=== PATIENT | female | born 1970 | race African-American/Black ===

== ENCOUNTER → 2016-03-21 14:41 | Outpatient (CLI) | payer MEDICAID ==
[2015-05-26 07:48] VITALS: BMI 35.6
[~2016-03-21 14:41] MED LIST: ATIVAN1 MG PO; CARAFATE1 G PO; CARDIZEM60 MG PO; COUMADIN10 MG PO; FERROUS SULFAT325 MG PO; LISINOPRIL-HCTZ1 T13 PO; LOVENOX INJ100 MG/ML SC; NEXIUM40 MG PO; SAVELLA100 MG PO
== END | disposition home or self-care (01) ==
LOC: D.MRI 14:41
DX: M25.512 Pain in left shoulder (principal)

== ENCOUNTER 2016-05-03 17:13 | Emergency (ER) | payer MEDICAID ==
[2015-05-26 07:48] VITALS: BMI 35.6
[2016-05-03 18:42] LABS: HEMATOCRIT 40.8 % (36.0-48.0); HEMOGLOBIN 13.1 g/dL (12-16); MCH 28.7 pg (26.0-34.0); MCHC 32.1 g/dL (31.0-37.0); MCV 89.3 fL (80.0-100.0); MEAN PLATELET VOLUME 10.3 fL (7.4-10.4); PLATELET COUNT 273 10x3/uL (130-400); RBC 4.57 10x6/uL (4.00-5.40); RDW 13.8 % (11.5-14.5); WBC 4.4 10x3/uL (4.8-10.8)
[2016-05-03 18:50] LABS: APTT 21.5 SECONDS (22.8-39.4); PROTIME 13.1 SECONDS (11.6-15.0)
[2016-05-03 18:51] LABS: ANION GAP 11.6 mmol/L (8-16); CALCIUM 9.3 mg/dL (8.5-10.1); CARBON DIOXIDE 30.6 mmol/L (21.0-32.0); CREATININE - SERUM 0.9 mg/dL (0.6-1.3); D-DIMER-QUANTITATIVE < 0.27 ug/mLFEU (0.20-0.54); POTASSIUM - SERUM 3.2 mmol/L (3.5-5.1)
[2016-05-03 19:11] LABS: EOSINOPHILS 4 % (0-7); LYMPHOCYTES 62 % (15-50); MONOCYTES 3 % (2-11); NEUTROPHILS 31 % (40-80); PLATELET ESTIMATE NORMAL
== END 2016-05-03 20:58 | disposition home or self-care (01) ==
LOC: D.ER 17:13
PROVIDERS: Nurse Practitioner Acute Care
DX: M54.5 Low back pain (principal); E87.6 Hypokalemia

== ENCOUNTER 2016-05-22 20:11 | Emergency (ER) | payer MEDICAID ==
[2015-05-26 07:48] VITALS: BMI 35.6
== END 2016-05-22 21:00 | disposition home or self-care (01) ==
LOC: D.ER 20:11
DX: M54.2 Cervicalgia (principal)

== ENCOUNTER → 2016-08-03 10:25 | Outpatient (CLI) | payer MEDICAID ==
[2015-05-26 07:48] VITALS: BMI 35.6
== END | disposition home or self-care (01) ==
LOC: D.MRI 10:25
DX: S83.231A Complex tear of medial meniscus, current injury, right knee, initial encounter (principal)

== ENCOUNTER 2018-06-06 11:05 | Outpatient (CLI) | payer OTHER ==
[~2018-06-06] VITALS: Ht 167.6 cm; Wt 105.5 kg
--- NOTE | ~2018-06-06 | HEMODYNAMI ---
PATIENT:YANI BELL MEDICAL RECORD: [id number] : 68 LOCATION:[facility] ADMISSION DATE: 06/06/18 Generatedon:06/06/201814:12 Patient name: YANI BELL Patient #: [id number] SSN: DO B: 1970 Date of study: 06/06/2018 Page: Of Hemodynamic Procedure Report Patient Data Patient Demographics Procedure consent was obtained First Name: YANI Gender: Female Last Name: RAY : 1970 Middle Initial: BLAYNE Age: 47 year(s) Patient #: [id number] Race: Black Additional ID: [id number] Contact details Address: [address] [place], [place] [address] State: [place] City: [place] Zip code: [address] Past Medical History Allergies: No known allergies Admission Admission Data Admission Date: 06/06/2018 Admission Time: 11:05 Height (in.): 66 BSA: 2.16 (m2) Height (cm.): 167.64 BMI: 38.58 (kg/m2) Weight (lbs.): 239 Weight (kg.): 108.41 Procedure Procedure Types Cath Procedure Diagnostic Procedure [facility] w/Coronaries Procedure Description Procedure Date Procedure Date: 06/06/2018 Procedure Start Time: 13:59 Procedure End Time: 14:12 Procedure Staff Name Function Phani Hua MD Performing Physician Kathy Perez RT Monitor Liza Scott RN Nurse Marian Lezama RT Scrub Procedure Data Cath Procedure Fluoroscopy Diagnostic fluoroscopy Total fluoroscopy Time: 3.9 time: 3.9 min min Diagnostic fluoroscopy Total fluoroscopy dose: 460 dose: 460 mGy mGy Contrast Material Contrast Material Type Amount (ml) Isovue 300 50 Entry Location Entry Primary Successful Side Size Upsize Upsize Entry Closure Mendez ccessful Closure Location (Fr) 1 (Fr) 2 (Fr) Remarks Device Remarks Radial Right 6 Fr Mechanical artery Short Compression Estimated blood loss: 5 ml Diagnostic catheters Device Type Used For End Catheter Placement DIAGNOSTIC [place] 110cm 5 LV Angiography Fr catheter ([id number]) DIAGNOSTIC [place] 110cm 5 Left Coronary Fr catheter ([id number]) Angiography DIAGNOSTIC [place] 110cm 5 Right Coronary Fr catheter ([id number]) Angiography DIAGNOSTIC AR MOD 5Fr Right Coronary Catheter ([id number]) Angiography Procedure Complications No complications Procedure Medications Medication Administration Route Dosage 0.9% NaCl I.V. 100 ml/hr Oxygen etCO2 Nasal cannula 2 l/min Lidocaine 2% added to field 20 Heparin Flush Bag added to field 2 bags (1000units/500ml NS) Radial Cocktail added to field 1 syringe (Verapomil 2mg/Nitro 400mcg/Heparin 1500units) Versed I.V. 2 mg Fentanyl I.V. 50 mcg Versed I.V. 2 mg Fentanyl I.V. 50 mcg Hemodynamics Rest BSA: 2.16 (m2) O2 Consumption: Estimated: 230.49 (ml/min) O2 Consumption indexed : Estimated:106.71 (ml/min/m) Heart Rate: 91 (bpm) Pressure Samples Time Site Value (mmHg) Purpose Heart Use Rate(bpm) 14:02 LV 113/-8,5 EDP 80 14:03 AO 96/61(75) Pullback 92 14:03 LV 98/2,2 Pullback 92 Gradients Valve Time Site 1 Site 2 Mean SEP/DFP Peak To Heart Use (mmHg) (sec/min) Peak Rate (mmHg) (bpm) Aortic 14:03 LV AO 1 15 2 92 98/2,2 96/61(75) Calculations Valve P-P Mean Valve Index Valve Source Name Gradient Area Flow (cm2) Aortic 2 1 2 1 Snapshots Pre Cath Intra NCS Post Cath Vital Signs Time Heart Resp SPO2 etCO2 NIBP (mmHg) Rhythm Pain Sedation Rate (ipm) (%) (mmHg) Status Level (bpm) 13:52:13 93 18 100 34.5 140/90(124) NSR 0 (11) 10(A) , No pain 13:56:45 91 19 100 36 136/77(103) NSR 0 (11) 10(A) , No pain 14:01:18 92 18 100 38.2 119/71(89) NSR 0 (11) 10(A) , No pain 14:05:44 90 21 100 37.4 116/61(89) NSR 0 (11) 10(A) , No pain 14:10:11 79 19 100 41.2 119/61(81) NSR 0 (11) 10(A) , No pain Medications Time Medication Route Dose Verified Delivered Reason Notes E ffectiveness by by 13:57:12 Versed I.V. 2 mg Phani Jeronimo for [facility] John sedation MD PENDLETON 13:57:27 Fentanyl I.V. 50 mcg Phani Jeronimo for MelitaSmith Hua sedation MD [place] 14:01:34 0.9% NaCl I.V. 100 Phani De Jesus used for ml/hr Fonda Tyler procedure MD SERRA 14:01:44 Oxygen etCO2 2 l/min Phani Ramsaya used for Nasal [facility] procedure cannula MD SERRA 14:01:50 Lidocaine 2% added 20ml Phani Jeronimo for local to vial Count Includes [facility] anesthetic field MD [place] 14:02:09 Heparin Flush added 2 bags Phani Jeronimo used for Bag to Count Includes [facility] procedure (1000units/500ml field MD [place] NS) 14:02:17 Radial Cocktail added 1 Phani De Jesus used for (Verapomil to syringe [facility] procedure 2mg/Nitro field MD SERRA 400mcg/Heparin 1500units) 14:03:38 Versed I.V. 2 mg Phani Jeronimo for [facility] John sedation MD [place] 14:03:42 Fentanyl I.V. 50 mcg Phani Jeronimo for [facility] John sedation MD [place] Procedure Log Time Note 13:39:10 Liza Scott RN sent for patient. Start room use. 13:39:11 Signed procedure consent form obtained from patient. 13:39:12 Diagnostic Cath status Elective 13:39:13 Time tracking: Regular hours (M-F 7:00 - 5:00) 13:39:17 Plan of Care:Hemodynamics will remain stable., Cardiac rhythm will remain stable., Comfort level will be maintained., Respiratory function will remain adequate., Patient/ family verbilizes understanding of procedure., Procedure tolerated without complication., Recovers from procedure without complications.. 13:40:14 Patient allergic to No known allergies 13:40:20 Patient Height : 66 inches 13:40:24 Patient Weight : 239 lbs 13:42:17 Patient received from Pre/Post Procedure Room to [facility] 1 Alert and oriented. Tansferred to table in Supine position. 13:42:19 Warm blankets applied, and elaina hugger turned on for patient comfort. 13:42:19 Correct patient and procedure confirmed by team. 13:42:20 ECG and BP/O2 sat monitors applied to patient. 13:42:21 Full Disclosure recording started 13:50:48 Vital chart was started 13:55:45 Baseline sample Acquired. 13:55:48 Rhythm: sinus rhythm 13:55:58 H&P Date Dictated: 05/23/2018 Within 30 days and on chart., H&P Addendum completed by physician on day of procedure. (MUST COMPLETE FOR ALL OUTPATIENTS). 13:56:00 Pre-procedure instructions explained to patient. 13:56:00 Pre-op teaching completed and patient verbalized understanding. 13:56:02 Family in waiting room. 13:56:03 Patient NPO since Midnight. 13:56:05 Is the patient allergic to Iodine/contrast media? No. 13:56:09 Is patient on blood thinner?Yes 13:56:24 ELIQUIS LAST DOSE 06/04/18 13:56:25 Patient diabetic? No. 13:56:28 Previous problem with sedation/anesthesia? No ? 13:56:29 Snore? Yes 13:56:31 Sleep apnea? Yes 13:56:32 Deviated septum? No 13:56:33 Opens mouth fully? Yes 13:56:33 Sticks out tongue? Yes 13:56:36 Airway obstruction? No ? 13:56:37 Dentures? No ? 13:56:40 Pre procedure: right dorsailis pedis pulse 2+ Normal; easily identifiable; not easily obliterated 13:56:42 Modified Mir's test Ulnar < 7 seconds 13:56:44 Patient pain scale 0/10 ?. 13:56:48 IV patent on arrival in left forearm with 0.9% NaCl at KVO. 13:56:50 Lab results completed and on chart. 13:56:54 Right Radial & Right Groin area was prepped with chlora-prep and draped in sterile fashion 13:56:55 Alarms reviewed by R. N. 13:56:55 Sharps counted by scrub and verified by R.N. 13:56:56 Final Timeout: patient, procedure, and site verified with staff and physician. All members of the team are in agreement. 13:57:00 Right Radial site verified by team. 13:57:03 Maximum allowable Isovue 300 dose 300ml. Physician notified. (300ml for normal creatinines. For patients with creatinine of 1.7 or higher multiply weight(kg) x 5 divided by creatinine.) 13:57:06 Fire Safety Assessment: A--An alcohol-based skin anteseptic being used preoperatively., C--Open oxygen or nitrous oxide is being used., D--An ESU, laser, or fiber-optic light is being used. 13:57:09 Physical assessment completed. ASA score P 2 - A patient with mild systemic disease as per Phani Hua MD. 13:57:12 Versed 2 mg I.V. was administered by Phani Hua MD; for sedation; 13:57:12 Sedation plan: IV Moderate Sedation Medication:Versed, Fentanyl 13:57:27 Fentanyl 50 mcg I.V. was administered by hPani Hua MD; for sedation; 13:58:57 Use device set Radial Dx or PCI 13:58:58 ACIST Syringe (66203) opened to sterile field. 13:58:58 Medline Cath Pack ([id number]) opened to sterile field. 13:58:59 Bag Decanter (2002S) opened to sterile field. 13:58:59 DIAGNOSTIC WIRE .035 260cm J wire (397974) opened to sterile field. 13:59:00 ACIST Hand Control (94035) opened to sterile field. 13:59:00 ACIST Manifold (49103) opened to sterile field. 13:59:02 MBrace Wrist Support ([id number]) opened to sterile field. 13:59:05 SHEATH 6FR Slender (11-1060) opened to sterile field. 13:59:09 Procedure started. 13:59:11 Zero performed for pressure channel P1 13:59:18 Local anesthetic to right radial artery with Lidocaine 2% by Phani Hua MD.INITIAL ACCESS ONLY 14:00:02 A 6 Fr Short sheath was inserted into the Right Radial artery 14:00:20 A DIAGNOSTIC [place] 110cm 5 Fr catheter (218308) was advanced over the wire and used for LV Angiography. 14:01:34 0.9% NaCl 100 ml/hr I.V. was administered by Liza Tyler RN; used for procedure; 14:01:44 Oxygen 2 l/min etCO2 Nasal cannula was administered by Liza Scott RN; used for procedure; 14::50 Lidocaine 2% 20ml vial added to field was administered by Phani Hua MD; for local anesthetic; 14:02:09 Heparin Flush Bag (1000units/500ml NS) 2 bags added to field was administered by Phani Hua MD; used for procedure; 14:02:17 Radial Cocktail (Verapomil 2mg/Nitro 400mcg/Heparin 1500units) 1 syringe added to field was administered by Liza Scott RN; used for procedure; 14::43 LV gram done using BURKS 14::44 LV hemodynamics recorded. 14::51 Injector settings: Ml/sec: 7, Volume: 15, 14:03:02 EF : 55 % 14:03:38 Versed 2 mg I.V. was administered by Phani Hua MD; for sedation; 14::42 Fentanyl 50 mcg I.V. was administered by Phani Hua MD; for sedation; 14:03:51 A DIAGNOSTIC [place] 110cm 5 Fr catheter (286543) was advanced over the wire and used for Left Coronary Angiography. 14:04:24 A DIAGNOSTIC [place] 110cm 5 Fr catheter (500902) was advanced over the wire and used for Right Coronary Angiography. REMOVED; UNABLE TO CANNULATE 14:07:11 A DIAGNOSTIC AR MOD 5Fr Catheter ([id number]) was advanced over the wire and used for Right Coronary Angiography. 14:07:58 Catheter removed. 14:08:10 Sheath removed intact; hemostasis achieved with Mechanical Compression to the Right Radial artery. 14:08:11 Procedure ended.(Physican Out) 14:08:26 Fluoroscopy time 03.90 minutes. 14:08:30 Flurop Dose total: 460 14:08:30 Fluoroscopy dose: 460 mGy 14:08:33 Contrast amount:Isovue 300 50ml. 14:08:38 TR BAND Large ([id number]) opened to sterile field. 14:08:45 Sharps counted by scrub and verified by R.N. 14:09:51 TR band inflated with 12cc of air. 14:09:52 Insertion/operative site no bleeding no hematoma. 14:09:56 Post right radial artery:stable, clean and dry 14:10:00 Post-procedure physical assessment completed. ASA score P 2 - A patient with mild systemic disease as per Phani Hua MD. 14:10:03 Post procedure rhythm: unchanged. 14:10:06 Estimated blood loss: 5 ml 14:10:08 Post procedure instruction explained to patient.Patient verbalizes understanding. 14:10:09 Patient needs reinforcement of post procedure teaching. 14:10:14 Procedure Complication : No complications 14:10:16 See physician's report for complete and final results. 14:10:45 Procedure and supply charges have been captured, reviewed, submitted and are correct. 14:12:02 Vital chart was stopped 14:12:06 Report given to Pre/Post Procedure Room. 14:12:09 Patient transfered to Pre/Post Procedure Room with Stretcher. 14:12:19 Procedure ended. 14:12:19 Full Disclosure recording stopped 14:12:23 End room use (Document Last) Device Usage Item Name Manufacture Quantity Catalog Hospital Part Current Minimal Lot# / Number Charge Number Stock Stock Serial# Code ACIST Acist 1 74303 236343 900330 576797 20 Syringe Medical (18469) Systems Inc Medline Medline 1 [id number] 263110 21611 832252 5 Cath Pack ([id number]) Bag Microtek 1 2001S 454413 82470 772263 5 Decanter Medical Inc. () DIAGNOSTIC [place] 1 386880 176846 686289 861664 30 WIRE .035 260cm J wire (104742) ACIST Hand Acist 1 62434 540197 390131 898530 5 Control Medical (42391) Systems Inc ACIST Acist 1 11705 011594 770206 005539 5 Manifold Medical (50011) Systems Inc MBrace Advanced 1 140-0250-00 776308 81672 403039 5 Wrist Vascular Support Dynamics ([id number]) SHEATH 6FR Terumo 1 [id number] 086637 963931 103692 5 Slender (80-1060) DIAGNOSTIC Terumo 1 40-5013 093863 482401 760625 5 [place] 110cm 5 Fr catheter (400639) TR BAND Terumo 1 [id number] 355947 129238 933048 40 Large ([id number]) DIAGNOSTIC Cardinal 1 [id number] 162452 503650 681919 15 AR MOD 5Fr Health Catheter ([id number]) Signature Audit Dawson Stage Time Signature Unsigned Intra-Procedure 06/06/2018 Kathy 2:12:35 PM Counts RT(R) Signatures Monitor : Kathy Signature : Counts RT Date : Time : [address] [address]
[~2018-06-06 11:05] MED LIST changes: -FERROUS SULFAT325 MG PO
[2018-06-06] MEDS ORDERED: FERROUS SULFAT325 MG PO (11:25)
[2018-06-06] MEDS ORDERED: ELIQUIS5 MG PO (11:25)
[2018-06-06] MEDS ORDERED: K-DUR20 MEQ PO (11:26)
[2018-06-06] MEDS ORDERED: LISINOPRIL-HCT1 EAC8 PO (11:26)
[2018-06-06] MEDS ORDERED: FUROSEMIDE20 MG PO (11:26)
[2018-06-06 11:33] VITALS: BP 128/71; Ht 167.6 cm; Wt 105.5 kg
[2018-06-06 12:06] LABS: CALCIUM 9.2 mg/dL (8.5-10.1); CARBON DIOXIDE 31.3 mmol/L (21.0-32.0); POTASSIUM - SERUM 3.3 mmol/L (3.5-5.1)
[2018-06-06 12:25] LABS: HEMATOCRIT 40.6 % (36.0-48.0); HEMOGLOBIN 13.6 g/dL (12-16); MCHC 33.5 g/dL (31.0-37.0); MCV 89.6 fL (80.0-100.0); MEAN PLATELET VOLUME 10.7 fL (7.4-10.4); PLATELET COUNT 309 10x3/uL (130-400); RBC 4.53 10x6/uL (4.00-5.40); RDW 13.9 % (11.5-14.5); WBC 4.2 10x3/uL (4.8-10.8)
[2018-06-06 12:46] LABS: LYMPHOCYTES 51 % (15-50); MONOCYTES 11 % (2-11); NEUTROPHILS 32 % (40-80); PLATELET ESTIMATE NORMAL
--- NOTE | 2018-06-06 14:40 | NUR ---
PATIENT AWAKE, EATING TURKEY SANDWICH. VSS ON ROOM AIR. RIGHT TR BAND IN PLACE, NO S/S OF BLEEDING OR HEMATOMA. NO C/O PAIN, NUMBNESS, OR TINGLING. PHYSICIAN AT BEDSIDE TO UPDATE PATIENT.
--- NOTE | 2018-06-06 15:10 | NUR ---
INITIATE AIR REMOVAL PROTOCOL FOR TR BAND, 5CC OF AIR REMOVED, NO S/S OF BLEEDING OR HEMATOMA. NO N/V. VSS ON ROOM AIR.
--- NOTE | 2018-06-06 15:40 | NUR ---
PATIENT AWAKE, REMAINING AIR REMOVED FROM TR BAND, NO S/S OF BLEEDING OR HEMATOMA. IV REMOVED. VSS ON ROOM AIR. NO C/O PAIN, NUMBNESS, OR TINGLING. NO N/V.
--- NOTE | 2018-06-06 16:00 | NUR ---
DRESSING APPLIED TO RIGHT RADIAL SITE, NO S/S OF BLEEDING OR HEMATOMA. EDUCATION REGARDING DISCHARGE INSTRUCTIONS GIVEN TO PATIENT, PATIENT VOICES UNDERSTANDING.
--- NOTE | 2018-06-06 16:10 | NUR ---
PATIENT VOIDED WITHOUT DIFFICULTY. PATIENT TRANSPORTED VIA WHEELCHAIR TO CAR WITH FAMILY DRIVING, ALL BELONGINGS SENT WITH PATIENT.
--- NOTE | 2018-06-08 09:58 | OP ---
PATIENT NAME: YANI BELL MEDICAL RECORD: [id number] :68 LOCATION:[facility] ADMISSION DATE: SURGEON: LYUBOV VIDALES MD DATE OF OPERATION: 06/06/2018 PROCEDURE: Left heart catheterization, selective coronary angiography, right radial approach. CATHETERS: Radial sheath, [place] catheter. The procedure was well tolerated. The patient returned to the lux. Sheath was removed. TR band was placed. FINDINGS: Left ventriculography in 30-degree BURKS view: Normal wall motion, normal systolic function. CORONARY ANATOMY: LEFT MAIN: Left main free of disease. LAD: Free of disease in the diagonal system. CIRCUMFLEX: Free of disease in the marginal system. RIGHT CORONARY ARTERY: Dominant artery, gives rise to PDA, free of disease. IMPRESSION: Normal left ventricular systolic function, normal coronary anatomy. TRANSINT:[id number] Voice Confirmation ID: [id number] DOCUMENT ID: [id number] LYUBOV VIDALES MD at 0958 CC: [id number] DICTATION DATE: 06/06/18 1414 B2B MANAGED SERVICE SALES EXEC: 06/06/18 1451 DEP CLI 06/06/18 [facility] [address] [place] [address]
== END 2018-06-06 16:10 ==
LOC: D.CATH 11:05
PROVIDERS: ATTEND Internal Medicine Interventional Cardiology
DX: I20.9 Angina pectoris, unspecified (principal); I10 Essential (primary) hypertension; Z01.812 Encounter for preprocedural laboratory examination